=== PATIENT | female | born 1980 | race Two or more races ===

== ENCOUNTER 2025-08-18 15:07 | Emergency (ER) | payer MEDICAID, OTHER ==
[~2025-08-18] VITALS: Ht 157.5 cm; Wt 172.2 kg
--- NOTE | 2025-08-18 15:23 | ED.PDOC ---
Musculoskeletal HPI Comments This patient is a severely morbidly obese 45 year old female presents to the ED with a chief complaint of RT leg swelling onset 1 day. Patient states she began experiencing RT leg swelling, pain, redness 1 day ago. She currently rates pain 8. PMHx HTN. Patient states she had an accident and hit the right side of he r lower leg approximately five days ago. Patient has a injury site on the lateral aspect of the right [place] region. Patient denies any fever nausea or vomiting. Vital signs were stable. Chief Complaint: Cellulitis Time Seen by MD: 15:10 Reviewed Notes: Nurses Notes, Medications, Allergies Information Source: Patient Mode of Arrival: Ambulatory Location: Right Extremity Location: Leg Timing: Days Prehospital treatment: None Severity: Moderate Able to Move Extremity: Yes Bear Weight: Limited Pain: Moderate Mechanism: Spontaneous Circumstances: Spontaneous Onset of Symptoms: Spontaneous Symptoms: Swelling, Pain, Erythema DVT Risk Factors: NONE Last Tetanus: UTD Associated signs and symptoms: Swelling, Leg pain Past Medical History PAST MEDICAL HISTORY: HTN Surgical History: Denies all surgeries [employer]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 Family History Family History: Reviewed,noncontributory to illness, No family hx of Cancer, No family hx of DM, No family hx of Heart antonino, No family hx of HTN, No family hx ofKidney antonino, No family hx of Liver antonino, No family hx of Lung antonino, No family hx of Stroke Social History Smoker: Non-Smoker Alcohol: Denies ETOH Use Drugs: Denies Drug Use Lives In: Home Constitutional: denies: chills, diaphoresis, fatigue, fever, malaise, sweats, weakness, others EENTM: denies: blurred vision, double vision, ear bleeding, ear discharge, ear drainage, ear pain, ear ringing, eye pain, eye redness, hearing loss, mouth pain, mouth swelling, nasal discharge, nose bleeding, nose congestion, nose pain, photophobia, tearing, throat pain, throat swelling, voice changes, others Respiratory: denies: cough, hemoptysis, orthopnea, SOB at rest, shortness of breath, SOB with excertion, stridor, wheezing, others Cardiovascular: denies: chest pain, dizzy spells, diaphoresis, Dyspnea on exertion, edema, irregular heart beat, left arm pain, lightheadedness, palpitations, PND, syncope, others Gastrointestinal: denies: abdomen distended, abdominal pain, blood streaked bowels, constipated, diarrhea, dysphagia, difficulty swallowing, hematemesis, melena, nausea, poor appetite, poor fluid intake, rectal bleeding, rectal pain, vomiting, others Genitourinary: denies: abnormal vagina bleeding, burning, dyspareunia, dysuria, flank pain, frequency, hematuria, incontinence, pain, , vagina discharge, urgency, others Neurological: denies: dizziness, fainting, headache, left sided numbness, left sided weakness, numbness, paresthesia, pre-existing deficit, right sided numbness, right sided weakness, seizure, speech problems, tingling, tremors, weakness, others Musculoskeletal: reports: others (RT leg edema, pain); denies: back pain, gout, joint pain, joint swelling, muscle pain, muscle stiffness, neck pain Integumetry: denies: bruises, change in color, change in hair/nails, dryness, laceration, lesions, lumps, rash, wounds, others Allergic/Immunocompromised: denies: Difficulty Healing, Frequent Infections, Hives, Itching, others Hematologic/Lymphatic: denies: anemia, blood clots, easy bleeding, easy bruising, swollen glands, others Endocrine: denies: excessive hunger, excessive sweating, excessive thirst, excessive urination, flushing, intolerance to cold, intolerance to heat, unexplained weight gain, unexplained weight loss, others Psychiatric: denies: anxiety, bipolar disorder, depression, hopeless, panic disorder, schizophrenia, sleepless, suicidal, others All Other Systems: Reviewed and Negative Physical Exam General Appearance: Moderate Distress (Moderate distress due to right lower leg pain concerns.), Obese HEENT: Normal ENT Inspection, Pharynx Normal, TMs Normal Neck: Full Range of Motion, Non-Tender, Normal, Normal Inspection Respiratory: Chest Non-Tender, Lungs Clear, No Accessory Muscle Use, No Respiratory Distress, Normal Breath Sounds Cardiovascular: No Edema, No JVD, No Murmur, No Gallop, Normal Peripheral Pulses, Regular Rate/Rhythm Breast Exam: Deferred Gastrointestinal: No Organomegaly, Non Tender, No Pulsatile Mass, Normal Bowel Sounds, Soft Genitalia: Deferred Pelvic: Deferred Rectal: Deferred Extremities: Other (Patient displays a his edema and erythema throughout the proximal aspect of the right lower leg. Some mild ecchymosis formed around a contusion wound to the lateral aspect. Skin is taut. Distal neurovascularly intact. Patient has a difficult time ambulating.) Musculoskeletal : Apperance: Normal Neurologic: Alert, No Motor Deficits, Normal Affect, Normal Mood, No Sensory Deficits Cerebellar Function: NOT DONE Reflexes: NOT DONE Skin: Dry, Normal Color, Warm Lymphatic: No Adenopathy Was a procedure done? Was a procedure done?: No Differential Diagnosis EXT Differential Diagnosis: Other (DVT, cellulitis, sepsis, electrolyte abnormality) X-Ray, Labs, Meds, VS Vital Signs Date Time Temp Pulse Resp B/P (MAP) Pulse Ox O2 Delivery O2 Flow Rate FiO2 08/18/25 18:19 95 18 97 Room Air 08/18/25 18:19 98.0 95 18 101/54 (70) 97 98.0 08/18/25 15:10 99.4 100 20 99/61 97 99.4 Lab Test 08/18/25 16:39 08/18/25 15:48 Range/Units Troponin I High Sensitivity 4 3 L </=34 ng/L White Blood Count 14.6 H 4.4-10.8 10^3/uL Red Blood Count 4.92 4.0-5.20 10^6/uL Hemoglobin 14.3 12.2-16.2 g/dL Hematocrit 42.3 36.0-46.0 % Mean Corpuscular Volume 86.0 80.0-100.0 fL Mean Corpuscular Hemoglobin 29.0 28.0-32.0 pg Mean Corpuscular Hemoglobin Concent 33.7 32.0-36.0 g/dL Red Cell Distribution Width 17.5 H 11.8-14.3 % Platelet Count 271 140-450 10^3/uL Mean Platelet Volume 8.8 6.9-10.8 fL Neutrophils (%) (Auto) 66.3 37.0-80.0 % Lymphocytes (%) (Auto) 26.5 10.0-50.0 % Monocytes (%) (Auto) 5.4 0.0-12.0 % Eosinophils (%) (Auto) 0.9 0.0-7.0 % Basophils (%) (Auto) 0.9 0.0-2.0 % Neutrophils # (Auto) 9.7 H 1.6-8.6 10 ^3/uL Lymphocytes # (Auto) 3.9 0.4-5.4 10 ^3/uL Monocytes # (Auto) 0.8 0-1.3 10 ^3/uL Eosinophils # (Auto) 0.1 0-0.8 10 ^3/uL Basophils # (Auto) 0.1 0-0.2 10 ^3/uL Nucleated Red Blood Cells 0.1 % Prothrombin Time 10.7 9.3-11.8 sec Prothrombin Time INR 1.01 0.9-1.15 Activated Partial Thromboplast Time 30.5 24.5-34.5 SEC Sodium Level 138 136-145 mmol/L Potassium Level 3.4 L 3.5-5.1 mmol/L Chloride Level 104 98-107 mmol/L Carbon Dioxide Level 23 20-31 mmol/L Anion Gap 11 5-15 Blood Urea Nitrogen 18 9-23 mg/dL Creatinine 1.10 H 0.550-1.02 mg/dL Glomerular Filtration Rate Calc 64 >90 mL/min BUN/Creatinine Ratio 16.4 10.0-20.0 Serum Glucose 105 74-106 mg/dL Calcium Level 10.8 H 8.7-10.4 mg/dL B-Type Natriuretic Peptide 15.54 0-100 pg/mL Current Medications Medications (Trade) Dose Ordered Sig/Keyshawn Route Start Time Stop Time Status Last Admin Acetaminophen/ Hydrocodone Bitart ([place] 10/325MG Tab) 1 tab ONCE ONCE PO 08/18/25 15:30 08/18/25 15:31 DC 08/18/25 18:13 [place] [id number] Ph: [phone] DIAGNOSTIC IMAGING Diagnostic Imaging Report : [id number] Signed PATIENT: AMBERLY PHILLIPSOACCT: [id number] UNIT: [id number] : 1980 LOC: ER ROOM / BED: / AGE / SEX: 45 / F ADM STATUS: REG ER SERVICE 1523 ORDERING PHYSICIAN: MELI GAONA PAC PROCEDURE(s): RLDVT - RT Lower DVT REASON: DVT rule out ORDER NUMBER(s): [id number], ACCESSION NUMBER(s): [id number] Procedure: US RT Lower DVT Study Date and Requested Time: 08/18/2025 03:35 PM History: DVT rule out Comparison: None Technique: Multiple high resolution belle-scale images with and without com pression obtained of the right lower extremity veins, including the common femoral vein, deep femoral vein, proximal mid and distal superficial femoral vein, and popliteal vein. Additional limited images of the greater saphenous vein also obtained. Augmentation performed as indicated. Color and spectral doppler flow images obtained as indicated. Findings: No visible intraluminal venous thrombus. No evidence of incompressibility or abnormal color or spectral Doppler flow visualized in the right lower extremity veins including, the common femoral vein, deep femoral vein, proximal mid and distal superficial femoral vein, and popliteal vein. Greater saphenous vein grossly unremarkable. Prominent right inguinal lymph node measuring up to 1.1 cm in short axis which may be reactive or neoplastic. Impression: No sonographic evidence of right lower extremity deep venous thrombosis. ATED BY: EVELINE ALVARADO DO DICTATED DATE/TIME: 08/18/25 160 SIGNED BY: EVELINE ALVARADO DO SIGNED DATE/TIME: 08/18/25 1605 CC: X-Ray, Labs, Meds, VS Comment All studies performed the ED were evaluated by me personally. Serum studies revealed a mild leukocytosis indicative of a cyanotic event. Doppler of the right lower extremity was unremarkable for any DVT formation. Patient appears to have a cellulitis. Patient will be sent home with antibiotic and pain medication. Patient should follow up with the primary care provider in 7-10 days for re-evaluation. Time of 1ST Reevaluation: 18:32 Reevaluation 1ST: Improved Consultation: PCP Patient Education/Counseling: Diagnosis, Treatment, Prognosis Family Education/Counseling: Diagnosis, Treatment, No Family Present Sepsis Recent Procedure: No On Antibiotic Therapy: No Respiratory Rate >20: No Heart Rate >90: No Temp<36 C (96.8 F) or >38.3 C: No SBP <90 or MAP <65 mmHG: No New Acute Mental Status Change: No Is the patient on CPAP, BIPAP,: No IV fluid given: No Departure 1 Departure Time of Disposition: 18:32 Impression: Primary Impression: Cellulitis Disposition: 01 HOME / SELF CARE / HOMELESS Condition: Stable Additional Instructions: Advised patient utilize antibiotics as directed until completion. Pain medication as needed. e-Prescriptions Acetaminophen (Acetaminophen) 500 Mg Tab 500 MG PO Q4HP PRN, #30 TAB Prov: MELI GAONA PAC 08/18/25 Ibuprofen Micronized (Ibuprofen) 800 Mg Tab 800 MG PO Q8HP PRN, #20 TAB Prov: CANDELARIA,MELI Bennett PAC 08/18/25 Cephalexin (KEFLEX CAPSULE) 250 Mg Cp 1 CAP PO QID for 10 Days, #40 CAP Prov: MELI GAONA PAC 08/18/25 Discharged With: Self, Friend Critical Care Note Critical Care Time?: No Stability Stability form required: No Heart Score Heart Score: Heart Score Response (Comments) Value History N/A 0 EKG N/A 0 Age N/A 0 Risk Factors N/A 0 Troponin N/A 0 Total 0 I personally scribed for MELI GAONA PAC ([email or web address]) on 08/18/25 at 15:23. Electronically submitted by Albertina Medrano ([email or web address]). I personally scribed for MELI GAONA PAC ([email or web address]) on 08/18/25 at 16:32. Electronically submitted by Albertina Medrano ([email or web address]). MELI GAONA PAC Aug 18, 2025 15:23
[2025-08-18 16:04] LABS: Hematocrit 42.3 % (36.0-46.0); Hemoglobin 14.3 g/dL (12.2-16.2); Mean Corpuscular Hemoglobin 29.0 pg (28.0-32.0); Mean Corpuscular Volume 86.0 fL (80.0-100.0); Nucleated Red Blood Cells % 0.1 %
--- NOTE | 2025-08-18 16:07 | DVH ---
Procedure: US RT Lower DVT Study Date and Requested Time: 08/18/2025 03:35 PM History: DVT rule out Comparison: None Technique: Multiple high resolution belle-scale images with and without compression obtained of the ri t lower extremity veins, including the common femoral vein, deep femoral vein, proximal mid and dis rachell superficial femoral vein, and popliteal vein. Additional limited images of the greater saphenous vein also obtained. Augmentation performed as indicated. Color and spectral doppler flow images obtai maura as indicated. Findings: No visible intraluminal venous thrombus. No evidence of incompressibility or abnormal color or spectr al Doppler flow visualized in the right lower extremity veins including, the common femoral vein, kristy p femoral vein, proximal mid and distal superficial femoral vein, and popliteal vein. Greater sapheno us vein grossly unremarkable. Prominent right inguinal lymph node measuring up to 1.1 cm in short axis which may be reactive or raciel plastic. Impression: No sonographic evidence of right lower extremity deep venous thrombosis.
[2025-08-18 16:10] LABS: Chloride 104 mmol/L (98-107); Sodium 138 mmol/L (136-145)
[2025-08-18 16:11] LABS: Anion Gap 11 (5-15); Carbon Dioxide 23 mmol/L (20-31)
[2025-08-18 16:14] LABS: Calcium 10.8 mg/dL (8.7-10.4); Potassium 3.4 mmol/L (3.5-5.1)
[2025-08-18 16:16] LABS: BUN/Creatinine Ratio 16.4 (10.0-20.0); Blood Urea Nitrogen 18 mg/dL (9-23); Glucose 105 mg/dL (74-106)
[2025-08-18 16:26] LABS: INR 1.01 (0.9-1.15); Partial Thromboplastin Time 30.5 SEC (24.5-34.5); Prothrombin Time 10.7 sec (9.3-11.8)
[2025-08-18] MEDS: HYDROcodone-ACET 10/325MG TAB PO ONE (18:13)
[2025-08-18 18:19] VITALS: BP 101/54; PULSE 95; RESP 18; TEMP 98; O2SAT 97
[2025-08-18] MEDS ORDERED: IBUP-1455 PO (18:35)
[2025-08-18] MEDS ORDERED: ACET500T58 PO (18:35)
[2025-08-18] MEDS ORDERED: CEPH250C PO (18:35)
== END 2025-08-18 19:12 | disposition home or self-care (01) ==
LOC: ER 15:07
DX: L03.115 Cellulitis of right lower limb (principal); I10 Essential (primary) hypertension; Z79.899 Other long term (current) drug therapy
CPT/HCPCS: 36415; 80048; 83880; 84484; 85025; 85610; 85730; 93971